=== PATIENT | female | born 1935 ===

== ENCOUNTER 2021-01-22 12:16 | Inpatient (IN) | payer MEDICARE, OTHER ==
[~2021-01-22] VITALS: Ht 157.5 cm; Wt 39.9 kg
[2021-01-22 18:20] LABS: BASOPHILS 0.2 % (0-2); EOSINOPHILS 1.6 % (0-7); HEMATOCRIT 40.9 % (36.0-48.0); HEMOGLOBIN 12.9 g/dL (12-16); IMMATURE GRANULOCYTES 0.2 % (0-5); LYMPHOCYTE ABS# 1.19 10x3/uL (1.18-3.74); MCHC 31.5 g/dL (31.0-37.0); MCV 104.6 fL (80.0-100.0); MEAN PLATELET VOLUME 10.7 fL (7.4-10.4); MONOCYTES 12.8 % (2-11); NEUTROPHIL ABS# 10.07 10x3/uL (1.56-6.13); NEUTROPHILS 76.2 % (40-80); PLATELET COUNT 235 10x3/uL (130-400); RBC 3.91 10x6/uL (4.00-5.40); RDW 14.8 % (11.5-14.5); WBC 13.2 10x3/uL (4.8-10.8)
[2021-01-22 19:20] LABS: CALC OSMOLALITY 272 mosm/kg (275-300); CHLORIDE - SERUM 101 mmol/L (98-107); CREATININE - SERUM 0.7 mg/dL (0.6-1.3); GLUCOSE 89 mg/dL (74-106); POTASSIUM - SERUM 4.8 mmol/L (3.5-5.1); SODIUM 137 mmol/L (136-145); UREA NITROGEN 12 mg/dL (7-18); eGFR NON AFRICAN AMERICAN 84 mL/min (90-120)
[2021-01-22 19:36] LABS: CKMB 1.4 U/L (0.0-3.6); CREATINE KINASE 90 UL (21-215); MAGNESIUM - SERUM 1.8 mg/dL (1.8-2.4)
[2021-01-22 20:00] VITALS: BP 119/85
--- NOTE | 2021-01-22 22:58 | NUR ---
ASSESMENT COMPLETE. AAOX4. VSWNL. MEDS PASSED. RT CHANGED FROM SIMPLE MASK TO HIGH FLOW AT 10L. SATS 97%. SN ASSISTED PATIENT WITH BEDPAN. CLIR. BED IN LOWEST POSITION. WILL CONT TO MONITOR.
[2021-01-23] VITALS: BP 110/40
--- NOTE | 2021-01-23 01:01 | NUR ---
BROUGHT PATIENT A WARM BLANKET. AWAKE IN ROOM WATCHING TV. NO S/S OF DISTRESS. RR EVEN AND NONLABORED. CLIR. BED IN LOWEST POSITION. WILL CONT TO MONITOR.
[2021-01-23 01:28] VITALS: BP 119/85; BMI 16.3
[2021-01-23] MEDS ORDERED: ALBUTEROL SULF8.5 GM (02:44)
[2021-01-23] MEDS ORDERED: NORVASC5 MG PO (02:46)
[2021-01-23] MEDS ORDERED: LIPITOR80 MG PO (02:48)
[2021-01-23] MEDS ORDERED: ZYRTEC10 MG PO (02:49)
[2021-01-23] MEDS ORDERED: VITAMIN D325 MC1 PO (02:51)
[2021-01-23] MEDS ORDERED: PROZAC10 MG PO (02:52)
[2021-01-23] MEDS ORDERED: FLORAJEN3 CAPS460 MG PO (02:52)
[2021-01-23] MEDS ORDERED: PLAVIX75 MG PO (02:52)
[2021-01-23] MEDS ORDERED: SINGULAIR10 MG PO (02:55)
[2021-01-23] MEDS ORDERED: MEGACE40 MG PO (02:55)
[2021-01-23 04:00] VITALS: BP 121/86
[2021-01-23 06:04] LABS: BASOPHILS 0.2 % (0-2); EOSINOPHILS 3.4 % (0-7); HEMOGLOBIN 13.9 g/dL (12-16); IMMATURE GRANULOCYTES 0.3 % (0-5); LYMPHOCYTE ABS# 1.75 10x3/uL (1.18-3.74); LYMPHOCYTES 14.6 % (15-50); MCH 32.8 pg (26.0-34.0); MCHC 31.6 g/dL (31.0-37.0); MCV 103.8 fL (80.0-100.0); MEAN PLATELET VOLUME 10.8 fL (7.4-10.4); MONOCYTES 12.3 % (2-11); NEUTROPHIL ABS# 8.31 10x3/uL (1.56-6.13); NEUTROPHILS 69.2 % (40-80); PLATELET COUNT 288 10x3/uL (130-400); RBC 4.24 10x6/uL (4.00-5.40); RDW 14.7 % (11.5-14.5)
[2021-01-23] MEDS ORDERED: NINTEDANIB PO (06:04)
[2021-01-23] MEDS ORDERED: OSTEO BI-FLEX1 EAC1 PO (06:05)
[2021-01-23] MEDS ORDERED: OS-CAL500 MG PO (06:06)
[2021-01-23] MEDS ORDERED: PROTONIX40 MG PO (06:08)
[2021-01-23 06:10] LABS: INR 1.32 (0.85-1.17); PROTIME 15.2 SECONDS (11.6-15.0)
[2021-01-23 06:11] LABS: APTT 36.7 SECONDS (22.8-39.4)
[2021-01-23] MEDS ORDERED: K-DUR20 MEQ PO (06:16)
[2021-01-23] MEDS ORDERED: LYRICA150 MG PO (06:16)
[2021-01-23] MEDS ORDERED: ULTRAM50 MG PO (06:18)
[2021-01-23] MEDS ORDERED: TRELEGY ELLIPT1 EACH INH (06:18)
[2021-01-23] MEDS ORDERED: XOPENEX 1.1.25 MG/3 UPD (06:19)
[2021-01-23] MEDS ORDERED: VITAMIN D-32000 UNIT PO (06:19)
[2021-01-23 06:49] LABS: CALCIUM 9.5 mg/dL (8.5-10.1); CARBON DIOXIDE 26.1 mmol/L (21.0-32.0); CHOL - HDL RATIO 1.8 ratio (2.3-4.1); CHOLESTEROL, TOTAL 83 mg/dL (0-200); CKMB 0.8 U/L (0.0-3.6); CREATINE KINASE 69 UL (21-215); CREATININE - SERUM 0.7 mg/dL (0.6-1.3); FERRITIN 455 ng/mL (3-244); GLUCOSE 78 mg/dL (74-106); HDL CHOLESTEROL 45 mg/dL (32-96); LDH 202 U/L (81-234); LDL CHOLESTEROL 29 mg/dL (0-100); LDL-HDL RATIO 0.6 ratio (1.5-3.5); MAGNESIUM - SERUM 1.9 mg/dL (1.8-2.4); PHOSPHOROUS 3.7 mg/dL (2.5-4.9); PRO BNP 10929 pg/mL (0-450); TRIGLYCERIDE 46 mg/dL (30-200); TROPONIN-I 0.027 ng/mL (0.000-0.060); UREA NITROGEN 9 mg/dL (7-18); eGFR NON AFRICAN AMERICAN 84 mL/min (90-120)
[2021-01-23 06:53] LABS: SARS-CoV-2 ANTIGEN NEGATIVE- SARS-COV-2 (NEGATIVE)
[2021-01-23 07:07] LABS: CALC OSMOLALITY 267 mosm/kg (275-300); CHLORIDE - SERUM 99 mmol/L (98-107); POTASSIUM - SERUM 4.2 mmol/L (3.5-5.1); SODIUM 135 mmol/L (136-145)
[2021-01-23 07:50] LABS: ERYTHROCYTE SEDIMENTATION RATE 72 mm/hr (0-42)
[2021-01-23 09:05] LABS: BILIRUBIN NEGATIVE (NEGATIVE); KETONE SMALL mg/dL (NEGATIVE); NITRITE NEGATIVE (NEGATIVE); UROBILINOGEN NORMAL mg/dL (< 2)
[2021-01-23 09:07] LABS: BACTERIA MODERATE HPF (NONE SEEN); SQUAMOUS EPITHELIAL 0-5 HPF (0-4); WHITE CELLS - URINE 0-5 HPF (0-4)
[2021-01-23 09:08] LABS: AMORPHOUS SEDIMENT <1+ LPF (NONE SEEN); GRANULAR CAST 1 LPF (NONE SEEN); TALC POWDER CRYSTALS 0-5 HPF (NONE SEEN)
[2021-01-23 09:46] VITALS: BP 111/67
--- NOTE | 2021-01-23 12:54 | NUR ---
PATIENT LYING SUPINE AAOX4, RESP EVEN AND NON LABORED, NO S/S OF DISTRESS, HIGH FLOW CANNULA IN PLACE ON 10L, MEDICATIONS ADMINISTERED WITH NO COMPLICATIONS, NO FURTHER NEEDS AT THIS TIME, CLIR, BLP
[2021-01-23 14:16] VITALS: BMI 16.1
--- NOTE | 2021-01-23 15:27 | NUR ---
COVID RESULTS NEGATIVE, PATIENT TOOK OFF ISOLATION PER INFECTION CONTROL AND DR. MORGAN. FAMILY NOTIFIED
[2021-01-23 15:43] VITALS: BP 96/51
--- NOTE | 2021-01-23 18:00 | NUR ---
I have reviewed this patient and I concur with the Shift Assessment completed by the Licensed Practical Nurse today this shift.
[2021-01-23 22:50] VITALS: BP 119/79
--- NOTE | 2021-01-23 23:09 | NUR ---
INITIAL ROUNDS COMPETED AT 0 HRS. PT DENIED ANY DISCOMFORT. ST PER CM HR 117. PT INCONTINENT OF URINE AT 1954 HRS. INCONTINENT CARE DONE. PUREWICK READJUSTED. PM MMEDS GIVEN. VSS. PT INCONTNENT OF URINE. NEW VACUUM SET UP PLACE AND NEW PUREWICK PLACE AFTER INCONTINENT CARE DONE. ASSESSMENT COMPLETED AT 2139 HRS. O2 10L HIGH FLOW O2. LUNGS DIMINISHED IN BASES BILAT. FITZPATRICK. PALPABLE PERIPHERAL PULSES. PT INCONTINENT OF URINE AFTER ASSESSMENT. INCONTINENT CARE DONE. PT STATES SHE DOESN'T WANT THE PUREWICK IT IS NOT WORKING RIGHT. PT STATES SHE WILL CALL FOR A BEDPAN. IV TO ESME LEVINE. SR UPX2, CALL LIGHT WITHIN REACH.
--- NOTE | 2021-01-24 00:15 | NUR ---
PT RESTING WITH EYES CLOSED. RESP EVEN AND REGULAR. SR UP X2, CALL LIGHT WITHIN REACH.
[2021-01-24 01:04] VITALS: BP 98/67
--- NOTE | 2021-01-24 02:16 | NUR ---
PT RESTING WITH EYES CLOSED. RESP EVEN AND REGULAR. SR UP X2, CALL LIGHT WITHIN REACH.
--- NOTE | 2021-01-24 04:33 | NUR ---
PT INCONTINENT OF URINE. INCONTINENT CARE DONE. PT TOLERATED ACTIVITY WELL.
[2021-01-24 05:06] VITALS: BP 113/75
--- NOTE | 2021-01-24 06:01 | NUR ---
VSS THROUGHOTU NIGHT. PT RESTED WELL DURING SHIFT. NEEDS MET; WILL CONTINUE TO MONITOR.
[2021-01-24 06:10] LABS: BASOPHILS 0.2 % (0-2); EOSINOPHILS 0 % (0-7); HEMATOCRIT 45.3 % (36.0-48.0); HEMOGLOBIN 14.5 g/dL (12-16); IMMATURE GRANULOCYTES 0.3 % (0-5); LYMPHOCYTE ABS# 0.71 10x3/uL (1.18-3.74); LYMPHOCYTES 10.7 % (15-50); MCH 32.6 pg (26.0-34.0); MEAN PLATELET VOLUME 10.5 fL (7.4-10.4); MONOCYTES 2.6 % (2-11); NEUTROPHIL ABS# 5.72 10x3/uL (1.56-6.13); NEUTROPHILS 86.2 % (40-80); PLATELET COUNT 338 10x3/uL (130-400); RBC 4.45 10x6/uL (4.00-5.40); RDW 14.3 % (11.5-14.5)
[2021-01-24 06:22] LABS: ANION GAP 14.5 mmol/L (8-16); CALCIUM 9.3 mg/dL (8.5-10.1); CARBON DIOXIDE 26.7 mmol/L (21.0-32.0); PHOSPHOROUS 4.4 mg/dL (2.5-4.9); POTASSIUM - SERUM 4.2 mmol/L (3.5-5.1)
[2021-01-24 06:22] LABS: MCV 101.8 fL (80.0-100.0); WBC 6.6 10x3/uL (4.8-10.8)
--- NOTE | 2021-01-24 07:00 | NUR ---
RECIEVED REPORT. ASSUMED CARE OF PATIENT. PATIENT RESTING IN BED WITH EYES OPEN, RECEIVING MED NEB TX. DENIES NEEDS. RIGHT AC SALINE LOCKED. CALL LIGHT WITHIN REACH. NO DISTRESS.
--- NOTE | 2021-01-24 07:20 | NUR ---
KIM FROM RADIOLOGY CALLED, WILL BE TO UNIT ABOUT [address] SCAN.
[2021-01-24 07:49] VITALS: BP 108/72
--- NOTE | 2021-01-24 08:10 | NUR ---
PATIENT LEFT UNIT VIA BED FOR CT SCAN AT THIS TIME. NO DISTRESS.
--- NOTE | 2021-01-24 10:50 | NUR ---
CARDIOLOGY HERE TO EVALUATE PATIENT. VS 103/56, 109, UNCONTROLLED AFIB.
[2021-01-24 11:03] VITALS: Ht 157.5 cm; Wt 39.9 kg
--- NOTE | 2021-01-24 11:43 | NUR ---
22 GAUGE IV PLACED TO LEFT FOREARM X 1 STICK FOR NS BOLUS FOLLOWED BY CARDIZEM BOLUS/INFUSION ONCE SBP 120 OR ABOVE. PATIENT TOLERATING IV FLUID BOLUS WELL. NO DISTRESS.
[2021-01-24 11:50] VITALS: BP 105/73
--- NOTE | 2021-01-24 12:17 | NUR ---
SBP 105/68 AFTER 250ML BOLUS, UNABLE TO ADMINISTER CARDIZEM BOLUS OR PLACE ON CARDIZEM DRIP AT THIS TIME DUE TO SBP IS STILL LESS THAN 120.
--- NOTE | 2021-01-24 14:07 | NUR ---
VS 102/69, 107-119, 95%
--- NOTE | 2021-01-24 14:30 | NUR ---
NOTIFIED SONIA BATRES APRN THAT AFTER GIVING PT BOLUS AND STARTING NS AT 75, PT'S BP STILL 102/69. PER SONIA BATRES CONT NS AT 75 UNTIL PT GETS 1L AND IF SYSTOLIC BP IS NOT ABOVE 120 THEN MEDICATIONS CANNOT BE GIVEN.
--- NOTE | 2021-01-24 14:36 | NUR ---
FAMILY AT BEDSIDE. CALL LIGHT WITHIN REACH. NO DISTRESS.
[2021-01-24 15:39] VITALS: BP 109/71
[2021-01-24 20:30] VITALS: BP 107/74
[2021-01-25 00:30] VITALS: BP 107/70
--- NOTE | 2021-01-25 02:48 | NUR ---
AWAKE IN ROOM READING. NO S/S OF DISTRESS. RR EVEN AND NONLABORED. CLIR. BED IN LOWEST POSITION. HOB ELEVATED. SR UPX3. NEEDS MET. WILL CONT TO MONITOR.
[2021-01-25 04:30] VITALS: BP 114/80
[2021-01-25 06:42] LABS: BASOPHILS 0.1 % (0-2); EOSINOPHILS 0 % (0-7); HEMATOCRIT 41.1 % (36.0-48.0); HEMOGLOBIN 13.1 g/dL (12-16); IMMATURE GRANULOCYTES 0.3 % (0-5); LYMPHOCYTE ABS# 0.96 10x3/uL (1.18-3.74); LYMPHOCYTES 8.8 % (15-50); MCH 32.3 pg (26.0-34.0); MCHC 31.9 g/dL (31.0-37.0); MCV 101.5 fL (80.0-100.0); MEAN PLATELET VOLUME 10.2 fL (7.4-10.4); MONOCYTES 5.8 % (2-11); NEUTROPHIL ABS# 9.25 10x3/uL (1.56-6.13); PLATELET COUNT 339 10x3/uL (130-400); RBC 4.05 10x6/uL (4.00-5.40); RDW 14.3 % (11.5-14.5)
[2021-01-25 06:59] LABS: ANION GAP 7.8 mmol/L (8-16); CALCIUM 8.8 mg/dL (8.5-10.1); CARBON DIOXIDE 31.5 mmol/L (21.0-32.0); CREATININE - SERUM 0.8 mg/dL (0.6-1.3); MAGNESIUM - SERUM 2.4 mg/dL (1.8-2.4); POTASSIUM - SERUM 4.3 mmol/L (3.5-5.1)
[2021-01-25 07:02] LABS: PHOSPHOROUS 3.1 mg/dL (2.5-4.9)
[2021-01-25 07:23] LABS: WBC 10.9 10x3/uL (4.8-10.8)
[2021-01-25 08:35] VITALS: BP 140/85
--- NOTE | 2021-01-25 08:51 | EC ---
PATIENT:LUCRECIA ASLES DATE OF SERVICE: 01/22/21 SEX: F MEDICAL RECORD: [id number] DATE OF : 34 LOCATION:D.M2 D.213 AGE OF PATIENT: 85 ADMISSION DATE: 01/22/21 REFERRING PHYSICIAN: INTERPRETING PHYSICIAN: SHRUTHI SANCHEZ MD ECHOCARDIOGRAM REPORT ECHO CHARGES 4 ECHO COMPLETE Date: 01/24/21 CLINICAL DIAGNOSIS: ATRIAL FIB ECHOCARDIOGRAPHIC MEASUREMENTS (adult normal given) AC root (d.<3.7cm) 3.7 cm LV Septum d (<1.2 cm> 1.2 cm Valve Excursion 1.2 cm LV Septum (systole) 1.5 cm Left Atria (s.<4.0cm> 2.5 cm LVPW d(<1.2cm) 1.2 cm RV (d.<2.3cm) 4.3 cm LVPW (sytole) 1.5 cm LV diastole(<5.6CM) 3.3 cm MV E-F(>70mm/sec) cm LV systole 1.5 cm LVOT Diameter 1.8 cm MV exc.(>10mm) 0.90 cm Est.ejection fraction (50-75%) % DOPPLER: LVIT cm/sec A 52.0 cm/sec E 64.0 cm/sec LA cm/sec RVSP 46 mmHg LVOT 90 cm/sec AOP1/2T 321 m/s Asc. Ao 123 cm/sec RVOT 77 cm/sec RA cm/sec PA 110 cm/sec AV Gradient Peak 6.07 mmHg AV Mean 3.78 mmHg AV Area 1.6 cm MV Gradient Peak 3.88 mmHg MV Mean 1.40 mmHg MV Area cm COMMENTS: Material Checker: 2 JEREMIE RIVAS Procedural Nurse: 5 Dr. Sanchez TAPE# PACS Pericardial Effusion N DATE OF SERVICE: CLINICAL INDICATION: Atrial fibrillation. INTERPRETATION: Technically difficult study, overall normal left ventricular chamber size and contractile function with an ejection fraction of 55% to 60%. There is noted to be D-shaped septum of the LV. Left atrial chamber is mildly dilated. Right atrial chamber is dilated. Right ventricular chamber dilated with severely reduced contractile dysfunction. Aortic valve has mild thickening and calcification, good cusp excursion. Mild aortic regurgitation. No aortic ECHOCARDIOGRAM REPORT [id number] LUCRECIA SALES stenosis noted. Mitral valve appears normal. Mild mitral regurgitation. Tricuspid valve appears normal. Mild to moderate tricuspid regurgitation. Tricuspid velocity of 3 meters per second. Estimated PA pressure of 46 mmHg suggestive of at least mild pulmonary hypertension. Pulmonary valve appears normal. Trace pulmonary regurgitation noted. No pericardial effusion visualized. IMPRESSION: 1. Technically difficult study, overall normal left ventricular chamber size and contractile function with ejection fraction 55% to 60%. 2. Right atrial and right ventricular chamber dilatation with severe reduced right ventricle contractile dysfunction. 3. Mild to moderate tricuspid regurgitation with estimated pulmonary artery pressures of at least 46 mmHg suggestion of at least mild pulmonary hypertension. TRANSINT:[id number] Voice Confirmation ID: [id number] DOCUMENT ID: [id number] SHRUTHI SANCHEZ MD at 0851 CC: [id number] DICTATION DATE: 01/24/21 1221 PRODUCT SAFETY TECHNICIAN: 01/24/21 1641 ADM IN [facility] [address] [id number]
[2021-01-25 12:10] VITALS: BP 115/74
[2021-01-25 16:16] VITALS: BP 123/85
--- NOTE | 2021-01-25 19:30 | NUR ---
RECEIVED REPORT, WILL ASSUME CARE OF PT, DENIES ANY NEEDS AT THIS TIME, BED IS LOW, SRX2, CALL LIGHT IN REACH, WILL CONTINUE PLAN OF CARE
[2021-01-25 22:30] VITALS: BP 121/76
[2021-01-26 04:00] VITALS: BP 124/81
--- NOTE | 2021-01-26 04:46 | NUR ---
I have reviewed this patient and I concur with the Shift Assessment completed by the Licensed Practical Nurse today this shift.
[2021-01-26 06:11] LABS: BASOPHILS 0 % (0-2); EOSINOPHILS 0 % (0-7); HEMATOCRIT 42.6 % (36.0-48.0); HEMOGLOBIN 13.5 g/dL (12-16); IMMATURE GRANULOCYTES 0.7 % (0-5); LYMPHOCYTE ABS# 1.62 10x3/uL (1.18-3.74); LYMPHOCYTES 14.4 % (15-50); MCH 32.5 pg (26.0-34.0); MCHC 31.7 g/dL (31.0-37.0); MCV 102.4 fL (80.0-100.0); MEAN PLATELET VOLUME 10.2 fL (7.4-10.4); MONOCYTES 14.1 % (2-11); NEUTROPHIL ABS# 7.96 10x3/uL (1.56-6.13); NEUTROPHILS 70.8 % (40-80); PLATELET COUNT 341 10x3/uL (130-400); RBC 4.16 10x6/uL (4.00-5.40); RDW 14.4 % (11.5-14.5); WBC 11.2 10x3/uL (4.8-10.8)
[2021-01-26 06:32] LABS: ANION GAP 8.7 mmol/L (8-16); CALCIUM 8.9 mg/dL (8.5-10.1); CARBON DIOXIDE 30.5 mmol/L (21.0-32.0); CREATININE - SERUM 0.8 mg/dL (0.6-1.3); MAGNESIUM - SERUM 2.7 mg/dL (1.8-2.4); PHOSPHOROUS 2.6 mg/dL (2.5-4.9); POTASSIUM - SERUM 4.2 mmol/L (3.5-5.1)
--- NOTE | 2021-01-26 07:00 | NUR ---
RECEIVED REPORT. ASSUMED CARE OF PATIENT. RESTING IN WELL IN BED RECEIVING MED NEB TX AT THIS TIME. WHITE BOARD UPDATED, BEDSIDE SHIFT REPORT COMPLETE. NO DISTRESS.
[2021-01-26 08:58] VITALS: BP 147/95
[2021-01-26 11:43] VITALS: BP 126/80
--- NOTE | 2021-01-26 13:49 | NUR ---
Nutrition Reassessment/Follow-up: Good/fair PO intake reported. Receiving Megace. ST eval pending. Diet: Regular PO intake: 50-75% (4/4) No new wt; last wt: 88#BMI: 16.1 (underweight) Labs noted: Glu 114, Mg 2.7, CRP 39.0 Meds noted: Prednisone, Florajen, Protonix, Megace, NS @ 75, electrolyte protocol *Using the following GLIM criteria, pt assessed with severe malnutrition: 1. Phenotypic -Low BMI -BMI 16.1 in an 85 year old 2. Etiologic -Inflammation -acute on chronic hypoxemic respiratory failure, pna, COPD -CRP 39.0 -Nutrition needs unchanged since initial assessment; no new wt available. -Encourage PO intake and honor food preferences within diet restrictions. -Offer/encourage nutrition supplements. -Need new wt. -RD will follow up within 3-4 days.
[2021-01-26 15:53] VITALS: BP 131/79
--- NOTE | 2021-01-26 17:59 | NUR ---
NO BM DOCUMENTED FOR SEVERAL DAYS. PATIENT STATES IT HAS BEEN A FEW DAYS SINCE SHE HAD A BM. PATIENT WITH N/V DURING PM MEAL. ZOFRAN ADMINISTERED AND PATEINT ABLE TO DRINK 1/2 GLASS OF PRUNE JUICE AND SPRITE. CALL LIGHT WITHIN REACH. NO DISTRESS.
--- NOTE | 2021-01-26 19:04 | NUR ---
pt lying in bed no distress noted will continue to monitor
[2021-01-26 20:00] VITALS: BP 109/73
[2021-01-27 04:00] VITALS: BP 136/86
[2021-01-27 06:34] LABS: CALC OSMOLALITY 276 mosm/kg (275-300); CALCIUM 8.7 mg/dL (8.5-10.1); CARBON DIOXIDE 30.8 mmol/L (21.0-32.0); CHLORIDE - SERUM 103 mmol/L (98-107); CREATININE - SERUM 0.7 mg/dL (0.6-1.3); GLUCOSE 102 mg/dL (74-106); MAGNESIUM - SERUM 2.5 mg/dL (1.8-2.4); PHOSPHOROUS 2.4 mg/dL (2.5-4.9); POTASSIUM - SERUM 4.2 mmol/L (3.5-5.1); SODIUM 137 mmol/L (136-145); UREA NITROGEN 22 mg/dL (7-18); eGFR NON AFRICAN AMERICAN 84 mL/min (90-120)
[2021-01-27 06:35] LABS: BASOPHILS 0.1 % (0-2); EOSINOPHILS 0 % (0-7); HEMOGLOBIN 14.2 g/dL (12-16); LYMPHOCYTE ABS# 2.41 10x3/uL (1.18-3.74); MCH 32.3 pg (26.0-34.0); MCHC 31.6 g/dL (31.0-37.0); MCV 102.5 fL (80.0-100.0); MEAN PLATELET VOLUME 10.1 fL (7.4-10.4); MONOCYTES 16.7 % (2-11); NEUTROPHIL ABS# 5.86 10x3/uL (1.56-6.13); NEUTROPHILS 58.2 % (40-80); PLATELET COUNT 354 10x3/uL (130-400); RBC 4.39 10x6/uL (4.00-5.40); RDW 14.4 % (11.5-14.5); WBC 10.1 10x3/uL (4.8-10.8)
[2021-01-27 07:28] VITALS: BP 136/86
[2021-01-27 09:12] LABS: ANA REFLEX - ANTICHROMATIN ABS <0.2 AI (0.0-0.9); ANA REFLEX - CENTROMERE B ABS <0.2 AI (0.0-0.9); ANA REFLEX - DBL STRANDED DNA 1 IU/mL (0-9); ANA REFLEX - DIRECT Positive (Negative); ANA REFLEX - JO-1 AB <0.2 AI (0.0-0.9); ANA REFLEX - RNP ANTIBODIES <0.2 AI (0.0-0.9); ANA REFLEX - SCL-70 <0.2 AI (0.0-0.9); ANA REFLEX - SJOGRENS AB SSA <0.2 AI (0.0-0.9); ANA REFLEX - SJOGRENS AB SSB 2.9 AI (0.0-0.9); ANA REFLEX - SMITH AB <0.2 AI (0.0-0.9)
[2021-01-27] MEDS ORDERED: LIPITOR10 MG PO (13:54)
[2021-01-27] MEDS ORDERED: PREDNISONE10 MG PO (13:57)
--- NOTE | 2021-01-27 14:07 | NUR ---
PT STATES SHE HAS HOME OXYGEN 3 L, HOME HEALTH WITH PT THAT EXERCISES WITH HER THREE TIMES A WEEK, AND WANTS TO GO HOME. SHE ALSO STATES HER DAUGHTER IS A PT. INFORMED GILMER FERNANDES WHO RESPONDED HE WOULD TRY TO GET HER DISCHARGED.
--- NOTE | 2021-01-27 14:44 | NUR ---
REFERRAL WAS RECEIVED. WENT TO PATIENTS ROOM TO TALK WITH HER ABOUT INPATIENT REHAB. PT REFUSES TO GO TO INPATIENT REHAB OR SNF. SHE STATED THAT SHE WANTS TO GO BACK HOME WHERE SHE HAS A CAREGIVER THAT LIVES WITH HER ALL THE TIME AND HOME HEALTH WHO IS DOING THERAPY. I DID DISCUSS THE BENEFITS OF REHAB WITH HER AND SHE EXPLAINED THAT SHE WAS NOT GOING TO BE TALKED INTO GOING ANYWHERE BUT HOME. I HAVE RELAYED THIS INFORMATION TO TENZIN RYAN CM. THANK YOU FOR THE REFERRAL. MELANIA ROOT RN CLINICAL LIAISON, INPATIENT REHAB.
--- NOTE | 2021-01-27 15:01 | NUR ---
DISCHARGE INSTRUCTIONS PROVIDED TO PATIENT AND DAUGHTER. PRINTED COPY GIVEN. VERBALIZED UNDERSTANDING. TRANSPORTED TO VEHICLE VIA WHEELCHAIR WITH OUR OXYGEN TO VEHICLE OXYGEN CONCENTRATOR.
--- NOTE | 2021-01-27 17:31 | MORECARE ---
CASE MANAGEMENT DISCHARGE SUMMARY PATIENT: LUCRECIA SALES UNIT: [id number] ADM DATE: 01/22/21 AGE: 85 : 34 SEX: F ROOM/BED: D.[facility] AUTHOR: ALICIA,DOC PHYSICIAN: REFERRING PHYSICIAN: ANNABELLE PAREDES MD DATE OF SERVICE: 01/27/21 Case Management Discharge Planning Summary DCP REVIEW SUMMARY ANTICIPATED D/C DATE: 01/27/2021 EXPECTED LOS : 5 CASE STATUS: DCP Initiated INITIAL REVIEW: 01/22/2021 INITIAL REVIEWER: Bj Nichols FINAL DISCHARGE DISPOSITION: : FINAL REVIEWER: FINAL REVIEW DATE: DCP Focus Questions & Answers QUESTION: ANSWER : PATIENT: LUCRECIA SALES ENCOUNTER: [id number] MEDICAL RECORD#: [id number] ADMISSION DATE: 01/22/2021 DISCHARGE DATE: 01/27/2021 ATTENDING MD: JAMESON WATOSN : AGE: 85 MARITAL STATUS: M DC PLAN ID: [id number] FACILITY: [facility] PRINTED ON: 01/27/21 17:31 CT All edits/amendments must be made on the electronic document DICTATION DATE: 01/27/211730 FORENSIC ENGINEER: JOSELIN 01/27/211730 RPT#: [id number] DC DATE:01/27/21 STATUS: DIS IN [facility] [address] [place] [address] END OF REPORT
--- NOTE | 2021-01-27 17:42 | MORECARE ---
CASE MANAGEMENT DISCHARGE SUMMARY PATIENT: LUCRECIA JIMÉNEZ UNIT: [id number] ADM DATE: 01/22/21 AGE: 85 : 34 SEX: F ROOM/BED: D.5052 AUTHOR: ALICIA,DOC PHYSICIAN: REFERRING PHYSICIAN: ANNABELLE PAREDES MD DATE OF SERVICE: 01/27/21 Case Management Discharge Planning Summary COMMENTS ENTERED DATE: 01/27/21 17:38 CT COMMENT TYPE: Discharge Planning REVIEWER: Bj Nichols CM met with patient to complete DC plan and to evaluate needs. Patient is partially dependent for mobility and lives with her spouse, Trell Jiménez (63), . Patient has a sitter, Celeste, who is with the patient from 10-3 Tuesday through Tuesday. The patient has strong family support and family is available for the patient on the Weekends. Patient stated that their home is safe and has electricity and running water. Patient stated that the home is flat and there are no steps to enter the home. Patient stated that she has no problems paying for medications and she fills her medications at [facility] in [place]. Patient stated that her primary physician is [facility] Game[facility] ([facility] in [place], [place]. At discharge, the patient plans to return home and feels this is a safe discharge. CM discussed availability of home health, rehab services, and medical equipment. Patient declined SNF, IPR, and DME. Patient stated that she gets around her home in her wheelchair. Patient stated that she would like to resume her home health service with [facility]. CM spoke with Sourav ([phone]) at [facility]. Sourav stated that SOC will be Tuesday. Clinicals faxed to [phone], attn: Yulisa. JUAN M refusal for Inpatient rehab and Acceptance for [facility] signed and placed on chart. Patient stated they have a wheelchair and walker at home. Patient voiced no other needs at this time and is satisfied with DC plan. Transportation provider at discharge will be with her daughter, Hiral, . DC IMM delivered, explained, signed by the patient, and placed in chart. Signed form also left with the patient. CM will continue to follow and will assist as needed with dc plans/needs DCP REVIEW SUMMARY ANTICIPATED D/C DATE: 01/27/2021 EXPECTED LOS : 5 CASE STATUS: DCP Initiated INITIAL REVIEW: 01/22/2021 INITIAL REVIEWER: Bj Nichols FINAL DISCHARGE DISPOSITION: : FINAL REVIEWER: FINAL REVIEW DATE: DCP Focus Questions & Answers DCP Evaluation QUESTION: ANSWER Patient and/or caregiver agree upon recommended discharge plan? : Yes Family / Caregiver's ability to cope with chronic illness: : a. Adequate (ability to meet patient's medical needs, ensures patient attends medical appts.) Patient's current cognitive status: : *Oriented to person, place, situation, time and present Patient's ability to cope with chronic illness : d. No chronic illness Patient gives permission to discuss discharge plans with: (name, relationship and number) : spouse, Trell Jiménez (87), daughterHiral, Does the patient have the ability to pay for or attain post discharge needs / services? : Yes Functional screen assessment: : Can meet basic needs but may require referral for resources Family / Caregiver's ability to cope with chronic illness: : a. Adequate (ability to meet patient's medical needs, ensures patient attends medical appts.) Physical Status: : Mobility impaired Equipment needed for post hospitalization: : None Is there a likelihood that the patient will require additional services to return to the preadmission environment? : No Living Arrangements: : Home with Spouse/Significant Other Partial Dependence, assistance required for: : Eating Partial Dependence, assistance required for: : Dressing Partial Dependence, assistance required for: : Bathing Partial Dependence, assistance required for: : Ambulation / Mobility Patient with capacity for self-care or can be cared for in same environment as prior to hospitalization? : Yes Living arrangements comments: : Has a hired caregiver from [address] [place] [address] Baseline cognitive status: : *Oriented to person, place, situation, time and present Physical environment modification needed / anticipated for discharge: : No Medication Management: : Patient states can read and understand medication labels Medication Management: : Patient states can afford medications Pharmacy name(s): : [facility] Does Patient have transportation to get home and to follow-up medical appointments when discharged from the hospital? : Yes Would patient like to participate in any Care Coordination programs (if applicable): : Not applicable Does the patient have electricity at home? : Yes Does the patient have running water in their house? : Yes Equipment in use: : Wheelchair Equipment in use: : Walker - Rolling Mental health screen: : No mental health history DCP Re-evaluation QUESTION: ANSWER Would patient like to participate in any Care Coordination programs (if applicable): : Not applicable PATIENT: LUCRECIA JIMÉNEZ ENCOUNTER: [id number] MEDICAL RECORD#: [id number] ADMISSION DATE: 01/22/2021 DISCHARGE DATE: 01/27/2021 ATTENDING MD: JAMESON WATSON : [id number] AGE: 85 MARITAL STATUS: M DC PLAN ID: [id number] FACILITY: [facility] PRINTED ON: 01/27/21 17:42 CT All edits/amendments must be made on the electronic document DICTATION DATE: 01/27/211741 HAND SPRING REPAIRER HELPER: JOSELIN 01/27/211741 RPT#: [id number] DC DATE:01/27/21 STATUS: DIS IN [facility] [address] [place] [address] END OF REPORT
[2021-01-28 12:11] LABS: PROCALCITONIN 0.15 ng/mL (0.00-0.08)
--- NOTE | 2021-01-29 10:21 | MORECARE ---
CASE MANAGEMENT DISCHARGE SUMMARY PATIENT: LUCRECIA JIMÉNEZ UNIT: [id number] ADM DATE: 01/22/21 AGE: 85 : 34 SEX: F ROOM/BED: D.6767 AUTHOR: ALICIA,DOC PHYSICIAN: REFERRING PHYSICIAN: ANNABELLE PAREDES MD DATE OF SERVICE: 01/29/21 Case Management Discharge Planning Summary COMMENTS ENTERED DATE: 01/27/21 17:38 CT COMMENT TYPE: Discharge Planning REVIEWER: Bj Nichols CM met with patient to complete DC plan and to evaluate needs. Patient is partially dependent for mobility and lives with her spouse, Trell Jiménez (83), . Patient has a sitter, Celeste, who is with the patient from 10-3 Tuesday through Tuesday. The patient has strong family support and family is available for the patient on the Weekends. Patient stated that their home is safe and has electricity and running water. Patient stated that the home is flat and there are no steps to enter the home. Patient stated that she has no problems paying for medications and she fills her medications at [facility] in [place]. Patient stated that her primary physician is Ank[facility] Gamez ([facility] in [place], [place]. At discharge, the patient plans to return home and feels this is a safe discharge. CM discussed availability of home health, rehab services, and medical equipment. Patient declined SNF, IPR, and DME. Patient stated that she gets around her home in her wheelchair. Patient stated that she would like to resume her home health service with [facility]. CM spoke with Sourav ([phone]) at [facility]. Sourav stated that SOC will be Tuesday. Clinicals faxed to [phone], attn: Yulisa. JUAN M refusal for Inpatient rehab and Acceptance for [facility] signed and placed on chart. Patient stated they have a wheelchair and walker at home. Patient voiced no other needs at this time and is satisfied with DC plan. Transportation provider at discharge will be with her daughter, Hiral, . DC IMM delivered, explained, signed by the patient, and placed in chart. Signed form also left with the patient. CM will continue to follow and will assist as needed with dc plans/needs DCP REVIEW SUMMARY ANTICIPATED D/C DATE: 01/27/2021 EXPECTED LOS : 5 CASE STATUS: DCP Initiated INITIAL REVIEW: 01/22/2021 INITIAL REVIEWER: Bj Nichols FINAL DISCHARGE DISPOSITION: : FINAL REVIEWER: FINAL REVIEW DATE: DCP Focus Questions & Answers DCP Evaluation QUESTION: ANSWER Patient and/or caregiver agree upon recommended discharge plan? : Yes Family / Caregiver's ability to cope with chronic illness: : a. Adequate (ability to meet patient's medical needs, ensures patient attends medical appts.) Patient's current cognitive status: : *Oriented to person, place, situation, time and present Patient's ability to cope with chronic illness : d. No chronic illness Patient gives permission to discuss discharge plans with: (name, relationship and number) : spouse, Trell Jiménez (87), daughterHrial, Does the patient have the ability to pay for or attain post discharge needs / services? : Yes Functional screen assessment: : Can meet basic needs but may require referral for resources Family / Caregiver's ability to cope with chronic illness: : a. Adequate (ability to meet patient's medical needs, ensures patient attends medical appts.) Physical Status: : Mobility impaired Equipment needed for post hospitalization: : None Is there a likelihood that the patient will require additional services to return to the preadmission environment? : No Living Arrangements: : Home with Spouse/Significant Other Partial Dependence, assistance required for: : Eating Partial Dependence, assistance required for: : Dressing Partial Dependence, assistance required for: : Bathing Partial Dependence, assistance required for: : Ambulation / Mobility Patient with capacity for self-care or can be cared for in same environment as prior to hospitalization? : Yes Living arrangements comments: : Has a hired caregiver [place] [address] [place] [address] Baseline cognitive status: : *Oriented to person, place, situation, time and present Physical environment modification needed / anticipated for discharge: : No Medication Management: : Patient states can read and understand medication labels Medication Management: : Patient states can afford medications Pharmacy name(s): : [facility] Does Patient have transportation to get home and to follow-up medical appointments when discharged from the hospital? : Yes Would patient like to participate in any Care Coordination programs (if applicable): : Not applicable Does the patient have electricity at home? : Yes Does the patient have running water in their house? : Yes Equipment in use: : Wheelchair Equipment in use: : Walker - Rolling Mental health screen: : No mental health history DCP Re-evaluation QUESTION: ANSWER Would patient like to participate in any Care Coordination programs (if applicable): : Not applicable PATIENT: LUCRECIA JIMÉNEZ ENCOUNTER: [id number] MEDICAL RECORD#: [id number] ADMISSION DATE: 01/22/2021 DISCHARGE DATE: 01/27/2021 ATTENDING MD: JAMESON WATSON : 1935 AGE: 85 MARITAL STATUS: M DC PLAN ID: [id number] FACILITY: [facility] PRINTED ON: 01/29/21 10:20 CT All edits/amendments must be made on the electronic document DICTATION DATE: 01/29/21 1020 SECONDARY SPECIAL EDUCATION TEACHER: JOSELIN 01/29/21 1020 RPT#: [id number] DC DATE:01/27/21 STATUS: DIS IN [facility] [address] [place] [address] END OF REPORT
--- NOTE | 2021-01-29 23:22 | MORECARE ---
CASE MANAGEMENT DISCHARGE SUMMARY PATIENT: LUCRECIA JIMÉNEZ UNIT: [id number] ADM DATE: 01/22/21 AGE: 85 : 33 SEX: F ROOM/BED: D.5968 AUTHOR: ALICIA,DOC PHYSICIAN: REFERRING PHYSICIAN: ANNABELLE PAREDES MD DATE OF SERVICE: 01/29/21 Case Management Discharge Planning Summary COMMENTS ENTERED DATE: 01/27/21 17:38 CT COMMENT TYPE: Discharge Planning REVIEWER: Bj Nichols CM met with patient to complete DC plan and to evaluate needs. Patient is partially dependent for mobility and lives with her spouse, Trell Jiménez (59), . Patient has a sitter, Celeste, who is with the patient from 10-3 Tuesday through Tuesday. The patient has strong family support and family is available for the patient on the Weekends. Patient stated that their home is safe and has electricity and running water. Patient stated that the home is flat and there are no steps to enter the home. Patient stated that she has no problems paying for medications and she fills her medications at [facility] in [place]. Patient stated that her primary physician is Ankush Gamez ([facility]) in [place], [place]. At discharge, the patient plans to return home and feels this is a safe discharge. CM discussed availability of home health, rehab services, and medical equipment. Patient declined SNF, IPR, and DME. Patient stated that she gets around her home in her wheelchair. Patient stated that she would like to resume her home health service with [facility]. CM spoke with Sourav ([phone]) at [facility]. Sourav stated that SOC will be Tuesday. Clinicals faxed to [phone], attn: Yulisa. JUAN M refusal for Inpatient rehab and Acceptance for [facility] signed and placed on chart. Patient stated they have a wheelchair and walker at home. Patient voiced no other needs at this time and is satisfied with DC plan. Transportation provider at discharge will be with her daughter, Hiral, . DC IMM delivered, explained, signed by the patient, and placed in chart. Signed form also left with the patient. CM will continue to follow and will assist as needed with dc plans/needs DCP REVIEW SUMMARY ANTICIPATED D/C DATE: 01/27/2021 EXPECTED LOS : 5 CASE STATUS: DCP Initiated INITIAL REVIEW: 01/22/2021 INITIAL REVIEWER: Bj Nichols FINAL DISCHARGE DISPOSITION: : FINAL REVIEWER: FINAL REVIEW DATE: DCP Focus Questions & Answers DCP Evaluation QUESTION: ANSWER Patient and/or caregiver agree upon recommended discharge plan? : Yes Family / Caregiver's ability to cope with chronic illness: : a. Adequate (ability to meet patient's medical needs, ensures patient attends medical appts.) Patient's current cognitive status: : *Oriented to person, place, situation, time and present Patient's ability to cope with chronic illness : d. No chronic illness Patient gives permission to discuss discharge plans with: (name, relationship and number) : spouse, Trell Jiménez (87), daughterHiral, Does the patient have the ability to pay for or attain post discharge needs / services? : Yes Functional screen assessment: : Can meet basic needs but may require referral for resources Family / Caregiver's ability to cope with chronic illness: : a. Adequate (ability to meet patient's medical needs, ensures patient attends medical appts.) Physical Status: : Mobility impaired Equipment needed for post hospitalization: : None Is there a likelihood that the patient will require additional services to return to the preadmission environment? : No Living Arrangements: : Home with Spouse/Significant Other Partial Dependence, assistance required for: : Eating Partial Dependence, assistance required for: : Dressing Partial Dependence, assistance required for: : Bathing Partial Dependence, assistance required for: : Ambulation / Mobility Patient with capacity for self-care or can be cared for in same environment as prior to hospitalization? : Yes Living arrangements comments: : Has a hired caregiver from [address] [place] [address] Baseline cognitive status: : *Oriented to person, place, situation, time and present Physical environment modification needed / anticipated for discharge: : No Medication Management: : Patient states can read and understand medication labels Medication Management: : Patient states can afford medications Pharmacy name(s): : [facility] Does Patient have transportation to get home and to follow-up medical appointments when discharged from the hospital? : Yes Would patient like to participate in any Care Coordination programs (if applicable): : Not applicable Does the patient have electricity at home? : Yes Does the patient have running water in their house? : Yes Equipment in use: : Wheelchair Equipment in use: : Walker - Rolling Mental health screen: : No mental health history DCP Re-evaluation QUESTION: ANSWER Would patient like to participate in any Care Coordination programs (if applicable): : Not applicable PATIENT: LUCRECIA JIMÉNEZ ENCOUNTER: [id number] MEDICAL RECORD#: [id number] ADMISSION DATE: 01/22/2021 DISCHARGE DATE: 01/27/2021 ATTENDING MD: JAMESON WATSON : 1935 AGE: 85 MARITAL STATUS: M DC PLAN ID: [id number] FACILITY: [facility] PRINTED ON: 01/29/21 23:22 CT All edits/amendments must be made on the electronic document DICTATION DATE: 01/29/212321 DUST HANDLER: JOSELIN 01/29/212321 RPT#: [id number] DC DATE:01/27/21 STATUS: DIS IN [facility] [address] [place] [address] END OF REPORT
== END 2021-01-27 15:03 | disposition home health service (06) | DRG 193 ==
LOC: D.M2 12:16
PROVIDERS: Internal Medicine Pulmonary Disease; ADMIT Emergency Medicine; ATTEND Emergency Medicine
DX: J18.9 Pneumonia, unspecified organism (principal); J96.01 Acute respiratory failure with hypoxia; J84.112 Idiopathic pulmonary fibrosis; I08.3 Combined rheumatic disorders of mitral, aortic and tricuspid valves; I48.91 Unspecified atrial fibrillation; F32.9 Major depressive disorder, single episode, unspecified; F41.9 Anxiety disorder, unspecified; J30.9 Allergic rhinitis, unspecified; M48.00 Spinal stenosis, site unspecified; I27.20 Pulmonary hypertension, unspecified; Z86.16 Personal history of COVID-19; Z87.891 Personal history of nicotine dependence